=== PATIENT | male | born 1980 | race Caucasian/White ===

== ENCOUNTER 2017-05-09 20:01 | Emergency (ER) | payer MEDICAID ==
--- NOTE | 2017-05-09 20:45 | ERNOTE ---
Medical Problem HPI - Narrative Date of Service: 05/09/17 - General Chief Complaint: Laceration Time Seen by Provider: 05/09/17 20:17 - Immun/Allergies/Home Medications Immunizations: IMMUNIZATION HX Immunizations Up to Date Yes History of Influenza Vaccine No Hx Pneumococcal Vaccination No Allergies/Adverse Reactions: Allergies No Known Allergies Allergy (Verified 11/10/13 10:12) Home Medications: HOME MEDICATIONS Ranitidine HCl 150 mg PO BID 08/17/13 [Last Taken Unknown] lamoTRIgine [Lamictal] 150 mg PO DAILY 08/17/13 [Last Taken Unknown] HYDROcodone/ACETAMINOPHEN [Vicodin 5-325] 1 each PO Q4H PRN 11/21/13 [Last Taken Unknown] QUEtiapine FUMARATE [Seroquel] 200 mg PO QPM 11/21/13 [Last Taken Unknown] - History of Present History Narrative: L fourth finger medial laceration that he obtained while slicing vegetables just prior to arrival. Pt. denies any SOB, CP, NVD, fever, numbness, tingling, but states taht pressure alleviates the bleeding and movement exacerbates the pain and bleeding. Pt. cleaned out wound with tap water prior to arrival. Modifying Factors - (Improves): Present: other - denies Modifying Factors - (Worsens): Present: other - denies Review of Systems - Review of Systems Constitutional: Present: no symptoms reported. Absent: recent illness, fever, chills, weakness, fatigue, malaise EYE: Present: no symptoms reported ENT: Present: no symptoms reported Respiratory: Present: no symptoms reported. Absent: shortness of breath, cough , wheezing Cardiology: Present: no symptoms reported. Absent: chest pain, palpitations, edema Gastrointestinal/Abdominal: Present: no symptoms reported. Absent: nausea, vomiting, diarrhea Genitourinary: Present: no symptoms reported Musculoskeletal: Present: no symptoms reported. Absent: back pain, joint pain Skin: Present: other - laceration L fourth finger Neurological: Present: no symptoms reported. Absent: headache, dizziness/light- headedness, numbness, tingling All Other Systems: All systems neg except as marked - Patient's Past Medical History Patient History - Medical: No pertinent hx Patient History - Cardiac/Respiratory: No pertinent hx Patient History - Cancer: No Hx of Cancer Patient History - Surgical Procedures: Appendectomy Patient History - Other: None - Social History Living Situations: spouse Abuse History: No History of abuse Psych History: No pertinent hx Smoking Status: Heavy tobacco smoker Have you smoked in the past 12 months: No Do you dip or chew tobacco: No Patient requests Smoking Cessation Consult: No Initiate information on Smoking Cessation: No Alcohol Use: none Drug Use: none - Immunizations Immunizations Up to Date: Yes Hx Pneumococcal Vaccination: No History of Influenza Vaccine: No Physical Exam - Physical Exam General Appearance: Present: wd/wn, alert, no apparent distress Head Exam: Present: normal inspection, no evidence of injury Eye Exam: Normal inspection: bilateral Respiratory: Present: no respiratory distress, normal breath sounds, no accessory muscle use, chest nontender, lungs clear Cardiovascular/Chest: Present: regular rate, rhythm, no murmur, normal peripheral pulses Back Exam: Present: normal inspection Extremity Exam: Present: other - L fourth finger laceration medial 1.2cm open into subcutaneous Neurological Exam: Present: alert, oriented, normal mood/affect, no motor/ sensory deficits Skin Exam: Present: normal color, warm/dry. Absent: pallor, skin rash ED Progress - Vital Signs Patient's Vital Signs:: I have reviewed the patient's vital signs. Vital Signs: Vital Signs 05/09/17 20:05 Temperature 35.3 C L Pulse Rate 93 Respiratory 18 Rate Blood Pressure 138/95 O2 Sat by Pulse 100 Oximetry - Progress/Reassessment Chief Complaint: Laceration Procedures Left Medial Finger 4th Digit Anesthesia: 1% Lidocaine, Digital Block I & D Prep: betadine prep, sterile drapes applied, sterile dressing applied Wound's Depth/Shape: into subcutaneous, linear Wound Explored: clean, to base Wound Intervention: irrigated w/saline Distal NVT: neuro/vasc intact, no tendon injury Wound Repaired With: sutures Suture Size/Type: 4-0, prolene Number of Sutures: 3 Layer Closure: Simple Wound Dressing: sterile dressing applied Complications: Pt shavon procedure well Departure Clinical Impression: Laceration - Departure Disposition: Home self-care Condition: Good Instructions: Laceration Care, Adult, [id number] Additional Instructions: Please follow up for suture removal in 7-10 days.
[2017-05-09 20:52] VITALS: BP 143/93
== END 2017-05-09 20:51 | disposition home or self-care (01) ==
LOC: ER 20:01
PROC: 0JQK0ZZ Repair Left Hand Subcutaneous Tissue and Fascia, Open Approach (ICD-10-PCS; principal; 2017-05-09)
DX: S61.215A Laceration without foreign body of left ring finger without damage to nail, initial encounter (principal); F17.200 Nicotine dependence, unspecified, uncomplicated; W26.0XXA Contact with knife, initial encounter; Y93.G1 Activity, food preparation and clean up

== ENCOUNTER 2017-05-16 09:43 | Emergency (ER) | payer MEDICAID ==
[2017-05-16 09:57] VITALS: BP 153/92
--- NOTE | 2017-05-16 10:22 | ERNOTE ---
Back Pain ER HPI Date of Service: 05/16/17 Presenting Symptoms: injury/pain to back Time Seen by Provider: 05/16/17 10:05 Source: patient, RN notes reviewed Exam Limitations: no limitations Immunizations: IMMUNIZATION HX Immunizations Up to Date Yes History of Influenza Vaccine No Hx Pneumococcal Vaccination No Allergies/Adverse Reactions: Allergies No Known Allergies Allergy (Verified 05/16/17 09:57) Home Medications: HOME MEDICATIONS Cyclobenzaprine HCl [Flexeril] 10 mg PO TID PRN #20 tab 05/16/17 [Last Taken Unknown] Ibuprofen [Motrin] 600 mg PO Q6H PRN #40 tab 05/16/17 [Last Taken Unknown] Narrative: 36 year old male ambulatory to the ED for back pain due to a fall during the night. He reports getting up to use the bathroom when his legs became numb, gave out, and he fell against the bathroom sink. He has been having the problem with his legs for several years. It began while he was incarcerated. He reports that it usually only happens after he has been walking long distances. He is a cook, and is on his feet all day which does not cause symptoms. He denies any prior back problems or injuries to his hips or knees. He took ibuprofen for his back pain about 2 hours ago without improvement. He denies wanting to take anything else right now because he has to drive home. Date (Duration): 05/16/17 Timing: Reports: constant Quality/Severity: Reports: aching Location of pain: Reports: mid back, no radiation Recent Injury?: Reports: yes Possible Precipitating Factor: Reports: fall/near fall Prior Treament: Denies: recently seen Review of Systems - Review of Systems Constitutional: Absent: recent illness, fever, malaise EYE: Present: no symptoms reported ENT: Present: no symptoms reported Respiratory: Absent: shortness of breath, cough Cardiology: Absent: chest pain, syncope, edema, claudication Gastrointestinal/Abdominal: Absent: nausea, abdominal pain Genitourinary: Absent: dysuria, other - incontinence, difficulty voiding Musculoskeletal: Present: back pain, muscle pain. Absent: neck pain, joint pain , joint swelling Skin: Absent: lesions, lumps, change in color Neurological: Absent: headache, dizziness/light-headedness Endocrine: Absent: increased thirst, increased urine, unexplained weight loss Hematologic/Lymphatic: Absent: easy bruising, easy bleeding Psych: Absent: emotional problems - Patient's Past Medical History Patient History - Medical: Obesity Patient History - Cardiac/Respiratory: No pertinent hx Patient History - Cancer: No Hx of Cancer Patient History - Surgical Procedures: Appendectomy Patient History - Other: None - Social History Living Situations: home Abuse History: No History of abuse Psych History: No pertinent hx Smoking Status: Current every day smoker Cigarettes Packs Per Day: 1 Alcohol Use: none Drug Use: none - Immunizations Immunizations Up to Date: Yes Hx Pneumococcal Vaccination: No History of Influenza Vaccine: No Physical Exam - Physical Exam General Appearance: Present: wd/wn, alert, no apparent distress, obese Head Exam: Present: normal inspection, no evidence of injury Neck: Present: normal inspection, nontender, supple, full range of motion Respiratory: Present: no respiratory distress, normal breath sounds, no accessory muscle use, lungs clear, chest tenderness - Left posterior ribs Cardiovascular/Chest: Present: regular rate, rhythm, no murmur, normal peripheral pulses Back Exam: Present: no CVA tenderness, vertebral tenderness - Thoracic, decreased range of motion. Absent: muscle spasm Extremity Exam: Present: normal inspection, normal range of motion, no edema. Absent: calf tenderness Neurological Exam: Present: alert, oriented, normal mood/affect, no motor/ sensory deficits, other - Normal strength against resistance in lower extremities DTR: N=norm/NB=norm/brisk/A=abs/DD=dull/dimin/HC=hyperactive: Knee (R): Normal/ Brisk, Knee (L): Normal/Brisk Skin Exam: Present: normal color, warm/dry ED Progress - Results and Orders Patient's Lab Results:: I have reviewed the patient's lab results. - Vital Signs Patient's Vital Signs:: I have reviewed the patient's vital signs. Vital Signs: Vital Signs 05/16/17 09:53 Temperature 36.3 C L Pulse Rate 89 Respiratory 16 Rate Blood Pressure 153/92 O2 Sat by Pulse 97 Oximetry - X-Ray X-Ray #1 X-Ray: ribs - Left Interpretation: Reviewed by me X-ray Comments: No acute osseous findings X-Ray #2 X-Ray: thoracic Interpretation: Reviewed by me X-ray Comments: No acute osseous findings - Progress/Reassessment Chief Complaint: Back Pain Progress:: Unchanged Departure Clinical Impression: Sprain thoracic region - Departure Disposition: Home Follow Up Needed Condition: Good Instructions: Back Pain, Adult, [id number] Additional Instructions: Ice to sore areas You can also take Tylenol with the other medications prescribed Establish with a primary care provider for further evaluation of numbness/ weakness in your legs Prescriptions: Cyclobenzaprine HCl [Flexeril] 10 mg PO TID PRN #20 tab PRN Reason: MUSCLE SPASMS Ibuprofen [Motrin] 600 mg PO Q6H PRN #40 tab PRN Reason: Pain
[2017-05-16 11:08] LABS: Hematocrit 44.3 % (42.0-52.0); Hemoglobin 15.7 gm/dL (13.5-18.0); Mean Cell Volume 88.2 fl (78-100); Mean Corpuscular Hemoglobin 31.3 pg (27-31); Mean Corpuscular Hgb Conc 35.4 g/dl (32-36); Mean Platelet Volume 10.3 fl (6.0-9.5); Neutrophil # 5.7 K/mm3 (1.3-6.0); Neutrophil % 60.7 % (42-75.0); Platelet Count 200 K/mm3 (150-450); Red Blood Count 5.02 M/mm3 (4.7-6.0); Red Cell Distribution Width 12.9 % (11.5-14.0); White Blood Count 9.4 K/mm3 (4.0-10.5)
[2017-05-16 11:19] LABS: Albumin * 3.9 gm/dl (3.4-5.0); Anion Gap 12.5 mmol/L (6.8-13.8); BUN/Creatinine Ratio 13.9 (9.0-21.6); Bilirubin, Total 0.5 mg/dL (0.0-1.1); CRP 0.3 mg/dL (0.0-0.9); Calcium * 9.2 mg/dL (7.9-10.9); Carbon Dioxide 28.9 mmol/L (24-32.6); Potassium 4.4 mmol/L (3.4-4.6); Total Protein 8.1 gm/dL (6.2-8.2)
== END 2017-05-16 11:47 | disposition home or self-care (01) ==
LOC: ER 09:43
DX: S23.3XXA Sprain of ligaments of thoracic spine, initial encounter (principal); W18.39XA Other fall on same level, initial encounter; Y92.002 Bathroom of unspecified non-institutional (private) residence as the place of occurrence of the external cause; F17.200 Nicotine dependence, unspecified, uncomplicated